=== PATIENT | male | born 1995 | race Caucasian/White ===

== ENCOUNTER 2019-02-27 20:29 | Emergency (ER) | payer SELFPAY ==
[2019-02-27] MEDS ORDERED: ACETAMINOPHEN 325 MG TABLET PO ONE (21:59)
[2019-02-27] MEDS ORDERED: DIPH/PERTUSS(ACELL)/TETANUS VAC/PF 0.5 ML SYR (>=10YO) IM ONE (22:08)
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
[2019-02-27] MEDS ORDERED: OXYCODONE HCL IR 5 MG TABLET PO ONE (23:31)
[2019-02-27] MEDS ORDERED: ONDANSETRON 4 MG TAB.RAPDIS PO ONE (23:31)
[2019-02-27] MEDS ORDERED: LIDOCAINE 1%/EPINEPHRINE INJ 20 ML VIAL INJ ONE (23:32)
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
[2019-02-28 00:44] VITALS: BP 99/80
== END 2019-02-28 00:44 | disposition home or self-care (01) ==
LOC: ER 20:29
DX: S81.812A Laceration without foreign body, left lower leg, initial encounter (principal); S71.111A Laceration without foreign body, right thigh, initial encounter; S61.512A Laceration without foreign body of left wrist, initial encounter; X99.1XXA Assault by knife, initial encounter; F17.200 Nicotine dependence, unspecified, uncomplicated; Z23 Encounter for immunization
CPT/HCPCS: 99284; 90471; 73590; 90715; 12002; S0119; J3490

== ENCOUNTER 2019-03-12 19:01 | Emergency (ER) | payer OTHER ==
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
[2019-03-12] MEDS ORDERED: HYDROCODONE/ACETAMINOPHEN 5-325 MG TABLET PO ONE (22:27)
[2019-03-12] MEDS ORDERED: AMOXICILLIN TR/POT CLAVULANATE 500-125 MG TAB PO ONE (22:27)
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
--- NOTE | 2019-03-13 00:55 | RADIOLOGY REPORT (SQ) ---
2 VIEWS OF LEFT HAND EXAM DATE: 03/13/2019 12:07 AM CDT HISTORY: Post 2nd splint. COMPARISON: Radiographs from earlier the same day. FINDINGS: The overlying cast obscures fine osseous detail. Interval improvement in alignment of fifth metacarpal fracture. The surrounding soft tissues are swollen. IMPRESSION: Interval improvement in alignment of 5th metacarpal fracture.
[2019-03-13 05:52] VITALS: BP 110/51
== END 2019-03-13 00:45 | disposition home or self-care (01) ==
LOC: ER 19:01
DX: S62.327A Displaced fracture of shaft of fifth metacarpal bone, left hand, initial encounter for closed fracture (principal); M79.642 Pain in left hand; Y04.2XXA Assault by strike against or bumped into by another person, initial encounter; F17.200 Nicotine dependence, unspecified, uncomplicated
CPT/HCPCS: 99283